=== PATIENT | female | born 1990 | race Caucasian/White ===

== ENCOUNTER 2020-04-05 19:59 | Inpatient (IN) ==
[2020-04-05] MEDS ORDERED: ONDANSETRON 4 MG/2 ML VIAL IV PRN (20:13)
[2020-04-05] MEDS ORDERED: MEPERIDINE 50 MG/1 ML VIAL IV PRN (20:22)
[2020-04-05] MEDS ORDERED: BUTORPHANOL 2 MG/ML VIAL IV PRN (20:22)
[2020-04-05] MEDS ORDERED: LACTATED RINGERS 1,000 ML IV SCH (20:30)
[2020-04-05 20:57] LABS: Basophils % 0.2 % (0.0-0.8); Eosinophils # 0.1 10*3/uL (0.0-0.87); Eosinophils % 0.6 % (0.00-10.9); Hemoglobin 11.6 GM/DL (12.0-16.0); Immature Granulocytes Absolute 0.23 #; Lymphocytes # 3.6 10*3/uL (1.4-4.0); Lymphocytes % 15.9 % (21.3-54.2); Mean Corpuscular HGB Conc 33.1 GM/DL (32-36); Mean Corpuscular Volume 77.6 FL (87-102); Monocytes % 4.3 % (1.7-12.7); Platelet Count 420 T/CUMM (130-400); Red Blood Count 4.51 MC/CUMM (3.8-5.5); Red Cell Distribution Width 15.1 % (9.3-17.3)
[2020-04-05] MEDS ORDERED: BUTORPHANOL 1 MG/ML VIAL IV PRN (21:00)
[2020-04-05] MEDS ORDERED: AMPICILLIN INJ 2,000 MG in SODIUM CHLORIDE 0.9% 100 ML IV ONE (21:00)
[2020-04-05 21:10] LABS: Alanine Aminotransferase 11 U/L (13-56); Albumin 2.5 G/DL (3.4-5.0); Alkaline Phosphatase 128 U/L (45-117); Aspartate Amino Transferase 9 U/L (0-37); Bilirubin,Total < 0.39 MG/DL (0.2-1.0); Blood Urea Nitrogen 8 MG/DL (7-18); Calcium 9.7 MG/DL (8.5-10.1); Estimated Glom Filtration Rate 171 ML/MIN; Glucose 105 MG/DL (74-106); Total Protein 7.2 G/DL (6.4-8.3)
[2020-04-05 21:28] LABS: Band Neutrophils 1 % (0-10); Eosinophils 3 % (0-10); Lymphocytes 12 % (20-55); Segmented Neutrophils 82 % (50-85); Total Cells Counted 100
[2020-04-05 21:29] LABS: Anisocytosis 1+; Microcytosis 1+; Platelet Estimate Normal
[2020-04-06] MEDS: AMPICILLIN INJ 1,000 MG in SODIUM CHLORIDE 0.9% 100 ML IV SCH ×5 (00:47→17:52)
[2020-04-06] MEDS ORDERED: OXYTOCIN/LR 20 UNIT/1,000 ML BAG IV SCH (07:09)
[2020-04-06] MEDS ORDERED: NALOXONE 0.4 MG/ML VIAL IV PRN (07:50)
[2020-04-06] MEDS ORDERED: ePHEDrine 50 MG/ML VIAL IV PRN (07:50)
[2020-04-06] MEDS ORDERED: LACTATED RINGERS 1,000 ML IV ONE (07:50)
[2020-04-06] MEDS ORDERED: hydrOXYzine HCL 25 MG/1 ML VIAL IM PRN (07:50)
[2020-04-06] MEDS ORDERED: diphenhydrAMINE 50 MG/1 ML VIAL IV PRN ×2 (07:50)
[2020-04-06] MEDS ORDERED: PROMETHAZINE 25 MG/1 ML VIAL IM ONE (07:50)
[2020-04-06] MEDS ORDERED: fentaNYL 2 MCG/ROPIV 0.2% EPID 100 ML EPIDURAL SCH (08:00)
[2020-04-06] MEDS ORDERED: CITRIC ACID/SODIUM CITRATE 30 ML UDCUP PO ONE (08:02)
[2020-04-06] MEDS ORDERED: FAMOTIDINE 20 MG/2 ML VIAL IV ONE (08:02)
[2020-04-06 12:38] LABS: Bilirubin,Urine Negative (Negative); Blood, Urine Negative (Negative); Glucose,Urine (UA) Negative (Negative); Ketones,Urine Negative (Negative); Mucus,Urine Few /LPF (Occasional); Nitrite,Urine Negative (Negative); Protein,Urine 30 MG/DL; Squamous Epithelial Cell,Urine Occasional /HPF (0-10); Urine Appearance CLEAR (Clear); Urine Color Yellow (Yellow); Urine Specific Gravity 1.024 (1.001-1.035); Urine Urobilinogen < 2.0 EU/DL (0.2-1.0)
[2020-04-06] MEDS ORDERED: miSOPROStoL 200 MCG TABLET ONE (13:05)
[2020-04-06] MEDS ORDERED: TRANEXAMIC ACID 1,000 MG/10 ML VIAL ONE (13:05)
[2020-04-06] MEDS ORDERED: METHYLERGONOVINE 0.2 MG/1 ML AMP ONE (13:06)
[2020-04-06] MEDS ORDERED: CARBOPROST TROMETHAMINE 250 MCG/ML AMP IM ONE (13:06)
[2020-04-06] MEDS ORDERED: OXYTOCIN/LR 20 UNIT/1,000 ML BAG IV ONE ×2 (13:06→17:05)
[2020-04-06] MEDS ORDERED: fentaNYL 100 MCG/2 ML VIAL ONE (16:02)
[2020-04-06] MEDS ORDERED: LANOLIN 50% CREAM 0.3 OZ TUBE TOP PRN (17:05)
[2020-04-06] MEDS ORDERED: ACETAMINOPHEN 325 MG TABLET PO PRN (17:05)
[2020-04-06] MEDS ORDERED: BISACODYL 10 MG SUPP RECTAL PRN (17:05)
[2020-04-06] MEDS ORDERED: MEASLES/MUMPS/RUBELLA VACCINE 0.5 ML VIAL SUBCUT ONE (17:05)
[2020-04-06] MEDS ORDERED: HYDROCORTISONE 2.5% RECTAL CREAM 30 GM TUBE TOP PRN (17:05)
[2020-04-06] MEDS ORDERED: WITCH HAZEL PADS 100/JAR TOP PRN (17:05)
[2020-04-06] MEDS ORDERED: RHO(D) IMMUNE GLOBULIN 300 MCG SYRINGE IM ONE (17:05)
[2020-04-06] MEDS ORDERED: BENZOCAINE 20%/MENTHOL 0.5% SPRAY 56 GM CAN TOP PRN (17:05)
[2020-04-06] MEDS ORDERED: oxyCODONE/ACETAMINOPHEN 5-325 MG TABLET PO PRN ×2 (17:05)
[2020-04-06] MEDS ORDERED: ONDANSETRON 4 MG/2 ML VIAL IV PRN (17:05)
[2020-04-06] MEDS ORDERED: DIPH/TET/ACEL PERT BOOSTER VACCINE 0.5 ML VIAL IM ONE (17:05)
[2020-04-06] MEDS: IBUPROFEN 800 MG TABLET PO PRN (22:15)
[2020-04-07] MEDS: DOCUSATE SODIUM 100 MG CAPSULE PO SCH ×3 (00:06→20:40)
[2020-04-07 03:56] LABS: Basophils # 0.1 10*3/uL (0.0-0.2); Basophils % 0.3 % (0.0-0.8); Eosinophils # 0.1 10*3/uL (0.0-0.87); Eosinophils % 0.7 % (0.00-10.9); Hemoglobin 10.2 GM/DL (12.0-16.0); Immature Granulocytes Absolute 0.18 #; Lymphocytes # 3.5 10*3/uL (1.4-4.0); Lymphocytes % 18.9 % (21.3-54.2); Mean Corpuscular HGB Conc 32.9 GM/DL (32-36); Mean Corpuscular Volume 78.3 FL (87-102); Mean Platelet Volume 8.9 FL (9.6-12.0); Monocytes % 5.4 % (1.7-12.7); Neutrophils % 73.7 % (38.7-73.9); Platelet Count 335 T/CUMM (130-400); Red Blood Count 3.96 MC/CUMM (3.8-5.5); Red Cell Distribution Width 15.1 % (9.3-17.3); White Blood Count 18.7 T/CUMM (4-12)
[2020-04-07] MEDS: IBUPROFEN 800 MG TABLET PO PRN (14:26)
[2020-04-08] MEDS: DOCUSATE SODIUM 100 MG CAPSULE PO SCH (08:20)
[2020-04-08 09:31] VITALS: BP 160/89
== END 2020-04-08 13:20 | disposition home or self-care (01) | DRG 807 ==
LOC: N.LDOUT 19:59 → N.LD 20:05 → N.OB 04-06 20:23
PROVIDERS: ADMIT Specialist; ATTEND Specialist